=== PATIENT | female | born 1955 | race Caucasian/White ===

== ENCOUNTER → 2017-07-20 | Outpatient (CLI) | payer MEDICARE ==
[~2017-07-20] MED LIST: REGADENOSON 0.4 MG/5 ML SYRINGE ONE
== END | disposition home or self-care (01) ==
LOC: CVU 11:18
PROVIDERS: ATTEND Internal Medicine Cardiovascular Disease
DX: Z01.818 Encounter for other preprocedural examination (principal); I25.10 Atherosclerotic heart disease of native coronary artery without angina pectoris; I25.2 Old myocardial infarction; E78.5 Hyperlipidemia, unspecified; Z87.891 Personal history of nicotine dependence
CPT/HCPCS: C8929; J2785

== ENCOUNTER 2017-08-04 09:17 | Day surgery (SDC) | payer MEDICARE ==
[~2017-08-04] VITALS: Ht 172.7 cm; Wt 143.0 kg
[2017-08-04] MEDS ORDERED: LACTATED RINGERS 1,000 ML IV SCH (10:05)
[2017-08-04] MEDS ORDERED: BUPIVACAINE/PF 0.5% ONE (10:09)
[2017-08-04] MEDS ORDERED: LIDOCAINE 1%, 50ML ONE (10:09)
[2017-08-04] MEDS ORDERED: FENTANYL PF 100 MCG/2ML ONE (10:23)
[2017-08-04] MEDS ORDERED: KETAMINE 10 MG/ML, 20ML ONE (10:23)
[2017-08-04] MEDS ORDERED: MIDAZOLAM 1 MG/ML, 2ML ONE (10:23)
[2017-08-04] MEDS ORDERED: OMEG1CAP34 PO (10:24)
[2017-08-04] MEDS ORDERED: METO50TA82 PO (10:24)
[2017-08-04] MEDS ORDERED: VENL75CA PO (10:24)
[2017-08-04] MEDS ORDERED: ZIPR40CA3 PO (10:24)
[2017-08-04] MEDS ORDERED: ASPI-621 PO (10:24)
[2017-08-04] MEDS ORDERED: FURO20TA3 PO (10:24)
[2017-08-04] MEDS ORDERED: SULF-169 PO (10:24)
[2017-08-04] MEDS ORDERED: CHOL200074 PO (10:24)
[2017-08-04] MEDS ORDERED: TRAM50TA2 PO (10:24)
[2017-08-04] MEDS ORDERED: LANS15CA PO (10:24)
[2017-08-04] MEDS ORDERED: ISOS30TA8 PO (10:24)
[2017-08-04] MEDS ORDERED: SENN-1 PO (10:24)
[2017-08-04] MEDS ORDERED: RED600TA PO (10:24)
[2017-08-04] MEDS ORDERED: MULT-658 PO (10:24)
[2017-08-04] MEDS ORDERED: NITR0.4T SL (10:24)
[2017-08-04] MEDS ORDERED: IBUP200C8 PO (10:24)
[2017-08-04] MEDS ORDERED: SOY155CA PO (10:24)
[2017-08-04] MEDS ORDERED: CLOP75TA52 PO (10:24)
[2017-08-04] MEDS ORDERED: POTA10TA5 PO (10:24)
[2017-08-04] MEDS ORDERED: PLEASE ENTER ALLERGIES MC SCH (10:30)
[2017-08-04 10:34] VITALS: BP 157/101
[2017-08-04 10:44] VITALS: BP 129/84
[2017-08-04 10:57] LABS: ALBUMIN 3.3 g/dL (3.4-5.0); ANION GAP 8 mmol/L (5-15); CALCIUM 9.4 mg/dL (8.5-10.1); CHLORIDE 107 mmol/L (98-107)
[2017-08-04 11:01] LABS: ALANINE AMINOTRANSFERASE 77 U/L (12-78); ALKALINE PHOSPHATASE 87 U/L (45-117); BILIRUBIN,TOTAL 0.5 mg/dL (0.2-1.0); CREATININE 0.82 mg/dL (0.55-1.02); TOTAL PROTEIN 7.5 g/dL (6.4-8.2)
[2017-08-04] MEDS ORDERED: CLINDAMYCIN 150 MG/ML, 6ML ONE (11:45)
[2017-08-04] MEDS ORDERED: BUPIVACAINE/PF 0.5% INFIL ONE (12:22)
[2017-08-04] MEDS ORDERED: ONDANSETRON 2MG/ML, 2ML ONE (15:44)
[2017-08-04] MEDS ORDERED: PROPOFOL 10 MG/ML, 20ML ONE (15:44)
[2017-08-04] MEDS ORDERED: ROCURONIUM 10 MG/ML,10ML ONE (15:44)
[2017-08-04] MEDS ORDERED: DEXAMETHASONE 4 MG/ML, 1ML ONE (15:44)
[2017-08-04] MEDS ORDERED: EPHEDRINE 50 MG/ML, 1ML ONE (15:44)
== END 2017-08-04 15:45 ==
LOC: OUT 09:17
PROVIDERS: ATTEND Orthopaedic Surgery Foot and Ankle Surgery
DX: M20.41 Other hammer toe(s) (acquired), right foot (principal); M20.42 Other hammer toe(s) (acquired), left foot; Z88.1 Allergy status to other antibiotic agents; Z88.0 Allergy status to penicillin; Z88.8 Allergy status to other drugs, medicaments and biological substances; I25.10 Atherosclerotic heart disease of native coronary artery without angina pectoris; K21.9 Gastro-esophageal reflux disease without esophagitis; E66.01 Morbid (severe) obesity due to excess calories; G89.29 Other chronic pain; I10 Essential (primary) hypertension; Z87.891 Personal history of nicotine dependence; Z68.42 Body mass index [BMI] 45.0-49.9, adult; Z79.82 Long term (current) use of aspirin
CPT/HCPCS: 28285; 36415; 73660; 76000; 80053; 93005; J1100; J2250; J2405; J2704; J3010; J3490; J7120

== ENCOUNTER 2017-09-03 19:03 | Observation (INO) | payer MEDICARE ==
[~2017-09-03] VITALS: Ht 175.3 cm; Wt 143.1 kg
[~2017-09-03 19:03] MED LIST changes: +ASPI-621 PO; +CHOL200074 PO; +CLOP75TA52 PO; +FURO20TA3 PO; +IBUP200C8 PO; +ISOS30TA8 PO; +LANS15CA PO; +METO50TA82 PO; +MULT-658 PO; +NITR0.4T SL; +OMEG1CAP34 PO; +POTA10TA5 PO; +RED600TA PO; -REGADENOSON 0.4 MG/5 ML SYRINGE ONE; +SENN-1 PO; +SOY155CA PO; +SULF-169 PO; +TRAM50TA2 PO; +VENL75CA PO; +ZIPR40CA3 PO
[2017-09-03] MEDS ORDERED: SODIUM CHLORIDE FLUSH 10ML SYR IVF ONE (19:30)
[2017-09-03] MEDS ORDERED: NITROGLYCERIN OINT 2%, 1GM TP ONE ×2 (19:30→19:49)
[2017-09-03 19:57] LABS: BASOPHILS # (AUTO) 0.04 x10^3/uL (0-0.1); BASOPHILS % (AUTO) 1 % (0-1); EOSINOPHILS # (AUTO) 0.16 x10^3/uL (0-0.4); EOSINOPHILS % (AUTO) 3 % (1-7); LYMPHOCYTES # (AUTO) 1.71 x10^3/uL (1-3.4); LYMPHOCYTES % (AUTO) 32 % (22-44); MD NO; MEAN CORPUSCULAR HEMOGLOBIN 30.8 pg (27.0-34.8); MEAN CORPUSCULAR HGB CONC 32.8 g/dL (32.4-35.8); MEAN CORPUSCULAR VOLUME 93.9 fL (80-100); MEAN PLATELET VOLUME 7.8 fL (7.4-10.4); MONOCYTES # (AUTO) 0.55 x10^3/uL (0.2-0.8); MONOCYTES % (AUTO) 11 % (2-9); NEUTROPHILS # (AUTO) 2.81 x10^3/uL (1.8-6.8); NEUTROPHILS % (AUTO) 53 % (42-75); PLATELET COUNT 211 x10^3/uL (130-400); RED BLOOD COUNT 4.53 x10^6/uL (3.82-5.3); RED CELL DISTRIBUTION WIDTH 13.7 % (9.6-15.2)
[2017-09-03 20:09] LABS: ALBUMIN 3.1 g/dL (3.4-5.0); ANION GAP 10 mmol/L (5-15); CHLORIDE 103 mmol/L (98-107); CREATININE 0.83 mg/dL (0.55-1.02)
[2017-09-03 20:12] LABS: TROPONIN I < 0.015 ng/mL (0.000-0.045)
[2017-09-03] MEDS ORDERED: ASPIRIN 81 MG TABLET CHEW ONE (20:33)
[2017-09-03] MEDS ORDERED: ASPIRIN 81 MG TABLET CHEW PO ONE (21:00)
[2017-09-03 21:50] VITALS: BP 129/79
[2017-09-03 22:00] VITALS: BP 129/79
[2017-09-03] MEDS ORDERED: OXYcodone IR 5MG TABLET PO PRN (23:00)
[2017-09-03] MEDS ORDERED: BISACODYL 10 MG SUPP PR PRN (23:00)
[2017-09-03] MEDS ORDERED: ONDANSETRON 2MG/ML, 2ML IVPush PRN (23:00)
[2017-09-03] MEDS ORDERED: hydrALAzine 20 MG/ML, 1ML IVPush PRN (23:00)
[2017-09-03] MEDS ORDERED: ENALAPRILAT 1.25 MG/ML, 2ML IVPush PRN (23:00)
[2017-09-03] MEDS ORDERED: morphine SULFATE 10 MG/ML, 1ML IVPush PRN (23:00)
[2017-09-03] MEDS ORDERED: NITROGLYCERIN 0.4 MG BOTTLE (25 TABS) SL PRN (23:00)
[2017-09-03] MEDS ORDERED: POLYETHYLENE GLYCOL 17 GM PACKET PO PRN (23:00)
[2017-09-03] MEDS ORDERED: ACETAMINOPHEN 325 MG TABLET PO PRN (23:00)
[2017-09-03] MEDS ORDERED: DOCUSATE 100 MG CAPSULE PO PRN (23:00)
[2017-09-03 23:25] LABS: HEMOGLOBIN A1C 6.1 % (4.2-6.3)
[2017-09-03 23:27] LABS: FREE T4 (FREE THYROXINE) 0.89 ng/dL (0.76-1.46); THYROID STIMULATING HORMONE 1.39 mIU/L (0.358-3.740)
[2017-09-03] MEDS: HEPARIN 5,000 UNITS/ML, 1ML SQ SCH (23:31)
[2017-09-03] MEDS: METOPROLOL TARTRATE 50 MG TABLET PO SCH (23:31)
[2017-09-04] MEDS ORDERED: ALBUTEROL SULFATE 2.5 MG/3 ML NPPB PRN
[2017-09-04 01:01] VITALS: BP 141/88
[2017-09-04 01:29] LABS: MICROSCOPIC AUTO
[2017-09-04 01:30] LABS: CULTURE INDICATED? YES
[2017-09-04 03:12] LABS: BASOPHILS # (AUTO) 0.04 x10^3/uL (0-0.1); BASOPHILS % (AUTO) 1 % (0-1); EOSINOPHILS % (AUTO) 3 % (1-7); LYMPHOCYTES # (AUTO) 2.01 x10^3/uL (1-3.4); LYMPHOCYTES % (AUTO) 33 % (22-44); MD NO; MEAN CORPUSCULAR HEMOGLOBIN 31.4 pg (27.0-34.8); MEAN CORPUSCULAR HGB CONC 33.6 g/dL (32.4-35.8); MEAN CORPUSCULAR VOLUME 93.5 fL (80-100); MEAN PLATELET VOLUME 7.8 fL (7.4-10.4); MONOCYTES # (AUTO) 0.65 x10^3/uL (0.2-0.8); MONOCYTES % (AUTO) 11 % (2-9); NEUTROPHILS % (AUTO) 53 % (42-75); PLATELET COUNT 200 x10^3/uL (130-400); RED CELL DISTRIBUTION WIDTH 13.8 % (9.6-15.2)
[2017-09-04 03:24] LABS: ALANINE AMINOTRANSFERASE 69 U/L (12-78); ALBUMIN 3.1 g/dL (3.4-5.0); ANION GAP 7 mmol/L (5-15); CALCIUM 8.8 mg/dL (8.5-10.1); CHLORIDE 100 mmol/L (98-107); CHOLESTEROL, TOTAL 176 mg/dL (140-239); CREATININE 0.76 mg/dL (0.55-1.02)
[2017-09-04 03:29] LABS: ALKALINE PHOSPHATASE 74 U/L (45-117); BILIRUBIN,TOTAL 0.4 mg/dL (0.2-1.0); CHOL/HDL RATIO 3.2; HDL CHOL % 31 % (28-40); HDL CHOLESTEROL (DIRECT) 55 mg/dL (40-60); LDL CHOLESTEROL,CALCULATED 91 mg/dL (54-169); LDL/HDL RATIO 1.7 (0.5-3.0); TRIGLYCERIDES 151 mg/dL (50-200); TROPONIN I < 0.015 ng/mL (0.000-0.045); VLDL CHOLESTEROL 30 mg/dL (0-25)
[2017-09-04 07:25] VITALS: BP 150/90
[2017-09-04] MEDS: HEPARIN 5,000 UNITS/ML, 1ML SQ SCH (07:48)
[2017-09-04] MEDS ORDERED: CHOLECALCIFEROL 1,000 UNIT TABLET PO SCH (09:00)
[2017-09-04] MEDS ORDERED: PANTOPRAZOLE 20MG TABLET PO SCH (09:00)
[2017-09-04] MEDS ORDERED: RED YEAST RICE PO SCH (09:00)
[2017-09-04] MEDS ORDERED: MULTIVITAMIN 1 TABLET PO SCH (09:00)
[2017-09-04] MEDS ORDERED: ASPIRIN 81 MG TABLET EC PO SCH (09:00)
[2017-09-04] MEDS ORDERED: VENLAFAXINE 75 MG CAP ER PO SCH (09:00)
[2017-09-04] MEDS ORDERED: POTASSIUM CHLORIDE 10 MEQ TABLET.ER PO SCH (09:00)
[2017-09-04] MEDS ORDERED: ISOSORBIDE MONONITRATE ER 30 MG TABLET PO SCH (09:00)
[2017-09-04] MEDS ORDERED: LISINOPRIL 10 MG TABLET PO SCH (09:00)
[2017-09-04] MEDS ORDERED: OMEGA-3/FISH OIL CAPSULE PO SCH (09:00)
[2017-09-04] MEDS ORDERED: FUROSEMIDE 20 MG TABLET PO SCH (09:00)
[2017-09-04] MEDS ORDERED: ZIPRASIDONE 40MG CAPSULE PO SCH (09:00)
[2017-09-04] MEDS ORDERED: CLOPIDOGREL 75 MG TABLET PO SCH (09:00)
[2017-09-04 09:04] LABS: TROPONIN I < 0.015 ng/mL (0.000-0.045)
[2017-09-04] MEDS: METOPROLOL TARTRATE 50 MG TABLET PO SCH (09:15)
[2017-09-04] MEDS ORDERED: ISOS60TA36 PO (10:01)
[2017-09-04] MEDS ORDERED: LISI-167 PO (10:01)
[2017-09-04] MEDS ORDERED: ALBU8.5H8 INH (10:01)
== END 2017-09-04 11:58 | disposition home or self-care (01) ==
LOC: ED 20:48 → INTOOBSV 20:50 → EDIP 20:50 → 5SO 21:55
PROVIDERS: ADMIT Internal Medicine; ATTEND Internal Medicine
DX: R07.9 Chest pain, unspecified (principal); I10 Essential (primary) hypertension; E44.0 Moderate protein-calorie malnutrition; F31.9 Bipolar disorder, unspecified; G47.33 Obstructive sleep apnea (adult) (pediatric); I25.10 Atherosclerotic heart disease of native coronary artery without angina pectoris; I25.2 Old myocardial infarction; F41.9 Anxiety disorder, unspecified; Z83.3 Family history of diabetes mellitus; Z90.710 Acquired absence of both cervix and uterus; Z95.5 Presence of coronary angioplasty implant and graft
CPT/HCPCS: 36415; 71045; 80048; 80053; 80061; 81001; 82040; 83036; 83735; 84439; 84443; 84484; 85025; 87086; 94660; 96372; 99285; G0378; J1644

== ENCOUNTER 2019-05-21 20:10 | Emergency (ER) | payer MEDICARE ==
[~2019-05-21] VITALS: Ht 172.7 cm; Wt 125.4 kg
[~2019-05-21 20:10] MED LIST changes: +ALBU8.5H8 INH; -ASPI-621 PO; +ASPI81TA45 PO; +ISOS60TA36 PO; +LISI-167 PO; -NITR0.4T SL; +NITR0.4T41 SL; -SENN-1 PO; +SENN-92 PO
[2019-05-21] MEDS ORDERED: CYCLOBENZAPRINE 10 MG TABLET ONE (21:52)
[2019-05-21] MEDS ORDERED: OXYcodone/APAP 5/325MG TABLET ONE (21:52)
[2019-05-21] MEDS ORDERED: OXYcodone/APAP 5/325MG TABLET PO ONE (22:00)
[2019-05-21] MEDS ORDERED: CYCLOBENZAPRINE 10 MG TABLET PO ONE (22:00)
[2019-05-21 22:41] VITALS: BP 134/78
== END 2019-05-21 22:44 | disposition home or self-care (01) ==
LOC: ED 22:38
DX: S39.012A Strain of muscle, fascia and tendon of lower back, initial encounter (principal); I10 Essential (primary) hypertension; I25.10 Atherosclerotic heart disease of native coronary artery without angina pectoris; Z87.891 Personal history of nicotine dependence; Z90.710 Acquired absence of both cervix and uterus; I25.2 Old myocardial infarction; X58.XXXA Exposure to other specified factors, initial encounter; Y93.89 Activity, other specified; Y92.89 Other specified places as the place of occurrence of the external cause; Y99.8 Other external cause status
CPT/HCPCS: 99283

== ENCOUNTER 2019-08-15 11:00 | Outpatient (CLI) | payer MEDICARE ==
[2019-08-15 11:20] LABS: BASOPHILS # (AUTO) 0.03 x10^3/uL (0-0.1); BASOPHILS % (AUTO) 1 % (0-1); EOSINOPHILS # (AUTO) 0.22 x10^3/uL (0-0.4); EOSINOPHILS % (AUTO) 5 % (1-7); LYMPHOCYTES # (AUTO) 1.17 x10^3/uL (1-3.4); LYMPHOCYTES % (AUTO) 25 % (22-44); MD NO; MEAN CORPUSCULAR HEMOGLOBIN 33.4 pg (27.0-34.8); MEAN CORPUSCULAR HGB CONC 34.1 g/dL (32.4-35.8); MEAN PLATELET VOLUME 7.6 fL (7.4-10.4); MONOCYTES % (AUTO) 9 % (2-9); NEUTROPHILS # (AUTO) 2.95 x10^3/uL (1.8-6.8); NEUTROPHILS % (AUTO) 62 % (42-75); PLATELET COUNT 202 x10^3/uL (130-400); RED BLOOD COUNT 4.46 x10^6/uL (3.82-5.3); RED CELL DISTRIBUTION WIDTH 13.4 % (9.6-15.2)
[2019-08-15 11:31] LABS: ALBUMIN 3.6 g/dL (3.4-5.0); ANION GAP 8 mmol/L (5-15); CALCIUM 8.9 mg/dL (8.5-10.1); CHLORIDE 107 mmol/L (98-107)
[2019-08-15 11:36] LABS: ALANINE AMINOTRANSFERASE 42 U/L (12-78); ALKALINE PHOSPHATASE 78 U/L (45-117); BILIRUBIN,TOTAL 0.4 mg/dL (0.2-1.0); CHOL/HDL RATIO 3.8; CHOLESTEROL, TOTAL 188 mg/dL (140-239); CREATININE 0.83 mg/dL (0.55-1.02); HDL CHOL % 26 % (28-40); HDL CHOLESTEROL (DIRECT) 49 mg/dL (40-60); LDL CHOLESTEROL,CALCULATED 100 mg/dL (54-169); TOTAL PROTEIN 7.6 g/dL (6.4-8.2); TRIGLYCERIDES 193 mg/dL (50-200); VLDL CHOLESTEROL 39 mg/dL (0-25)
== END 2019-08-15 23:59 | disposition home or self-care (01) ==
LOC: LAB 11:00
PROVIDERS: ATTEND Internal Medicine Cardiovascular Disease
DX: G47.30 Sleep apnea, unspecified (principal); I10 Essential (primary) hypertension; I25.2 Old myocardial infarction; Z95.5 Presence of coronary angioplasty implant and graft
CPT/HCPCS: 36415; 80053; 80061; 85025

== ENCOUNTER → 2020-02-11 | Outpatient (CLI) | payer MEDICARE ==
[2020-02-11 10:23] LABS: ALBUMIN 3.6 g/dL (3.4-5.0); ANION GAP 6 mmol/L (5-15); CALCIUM 10.3 mg/dL (8.5-10.1); CHLORIDE 110 mmol/L (98-107)
[2020-02-11 10:28] LABS: ALANINE AMINOTRANSFERASE 34 U/L (12-78); ALKALINE PHOSPHATASE 59 U/L (45-117); BILIRUBIN,TOTAL 0.3 mg/dL (0.2-1.0); CHOLESTEROL, TOTAL 218 mg/dL (140-239); CREATININE 1.08 mg/dL (0.55-1.02); HDL CHOL % 25 % (28-40); HDL CHOLESTEROL (DIRECT) 55 mg/dL (40-60); LDL CHOLESTEROL,CALCULATED 124 mg/dL (54-169); LDL/HDL RATIO 2.3 (0.5-3.0); TOTAL PROTEIN 7.6 g/dL (6.4-8.2); TRIGLYCERIDES 193 mg/dL (50-200); VLDL CHOLESTEROL 39 mg/dL (0-25)
== END | disposition home or self-care (01) ==
LOC: LAB 09:56
PROVIDERS: ATTEND Internal Medicine Cardiovascular Disease
DX: I10 Essential (primary) hypertension (principal); G47.30 Sleep apnea, unspecified; I25.2 Old myocardial infarction; Z95.5 Presence of coronary angioplasty implant and graft
CPT/HCPCS: 36415; 80053; 80061